=== PATIENT | female | born 1965 | race Caucasian/White ===

== ENCOUNTER 2018-02-11 22:51 | Observation (INO) ==
[2018-02-11 23:59] LABS: Basophils # 0.1 K/mcL (0.0-0.2); Basophils % 0.3 %; Eosinophils # 0.1 K/mcL (0.0-0.6); Eosinophils % 0.5 %; Hematocrit 47.5 % (35.3-44.9); Immature Granulocytes % 0.3 % (0-4); Lymphocytes # 3.1 K/mcL (0.6-4.6); Lymphocytes % 20.1 %; Mean Corpuscular HGB Conc 33.7 g/dL (31.6-35.5); Mean Corpuscular Hemoglobin 29.5 pg (28.0-33.3); Mean Corpuscular Volume 87.5 fL (83.0-100.0); Mean Platelet Volume 9.4 fL (9.4-12.4); Monocytes # 1.3 K/mcL (0.0-1.3); Monocytes % 8.6 %; Neutrophils # 10.8 K/mcL (1.6-8.9); Platelet Count 314 K/mcL (140-400); Red Blood Count 5.43 M/mcL (3.82-4.97); Red Cell Distribution Width 12.8 % (11.5-14.5); Segmented Neutrophils % 70.2 %
[2018-02-12 00:04] LABS: Prothrombin Time 11.3 Seconds (9.4-12.1)
[2018-02-12 00:16] LABS: Bilirubin,Urine Negative (Negative); Blood,Urine Negative (Negative); Clarity,Urine Clear (Clear); Color,Urine Yellow (Yellow); Glucose,Urine (UA) Normal (Normal); Ketones,Urine Negative (Negative); Leukocyte Esterase,Urine Trace (Negative); Nitrite,Urine Negative (Negative); Protein,Urine Negative (Neg-Trace); Specific Gravity,Urine 1.016 (1.010-1.025); Urobilinogen,Urine Normal (Normal)
--- NOTE | 2018-02-12 00:18 | Emergency Department Note ---
Disposition Clinical Impression: Near syncope Disposition: Admitted As Inpatient Condition: Good Referrals: NONE,PCP [Primary Care Provider] - Dana Bolton [Family Provider] - Forms: ED Satisfaction Letter Dizziness HPI - General Chief Complaint: ED Dizziness Stated Complaint: "Dizzy/Near Syncope" Time Seen by Provider: 02/11/18 23:27 Source: patient, family Mode of arrival: private vehicle Limitations: no limitations Nursing Notes Reviewed: Yes Vital Signs Reviewed: Yes - History of Present Illness Pt Subjective Complaint: lightheadedness, near syncope Onset (ago): hour(s) Timing: sudden onset, intermittent, waxing/waning, now resolved Description: lightheadedness, off-balance, near-syncope History of similar episodes: No History of trauma: No Severity: moderate, now resolved Improves with: nothing Worsens with: nothing Associated symptoms: Reports: other (entire head felt numb, felt hot, legs felt weak, called daughter and speech seemed to be "thick". ). Denies: ataxia, chest pain, confusion, diaphoresis, fever, chills, malaise, rash, shortness of breath, syncope, weakness, vision changes, nausea, vomiting, palpitations - Related Data Allergies Allergy/AdvReac Type Severity Reaction Status Date / Time No Known Allergies Allergy Verified 02/11/18 22:59 All systems ED: reviewed and negative except as stated. Review of Systems: As Per HPI Constitutional: Reports: weakness (legs felt weak when walking from house to outside). Denies: fever, chills, night sweats Eyes: Denies: eye pain, eye discharge, vision change ENT ED: Denies: ear pain, throat pain, congestion, dysphagia Cardiovascular: Reports: as per HPI, chest pain (yesterday - "brief episodes of stinging pain"). Denies: palpitations, dyspnea on exertion, orthopnea, edema, syncope (near syncope - felt weak and light headed - like she was going to pass out - while walking) Respiratory: Denies: cough, dyspnea, wheezes, hemoptysis, stridor, sputum production Gastrointestinal: Denies: abdominal pain, nausea, vomiting, diarrhea Genitourinary: Denies: dysuria, frequency, hematuria Musculoskeletal: Reports: other (left leg has been "bigger than the right" for several months). Denies: back pain, neck pain, joint swelling, arthralgia, myalgia Integumentary: Denies: rash, lesions Neurological: Reports: numbness. Denies: headache, confusion, vertigo Psychiatric: Reports: anxiety ("A little bit tonight, but not usually.") Endocrine: Denies: fatigue Hematological/Lymphatic: Denies: easy bleeding, easy bruising Past Medical History - Past Medical History Attestation: Yes The following information was validated with the patient. Source: patient Medical history: Reports: no medical history Surgical history: Reports: non-contributory Psychiatric history: Reports: no psych history - Social History Smoking Status: Current every day smoker Smokeless Tobacco Status: No Alcohol use: Reports: none Drug use: Reports: none Physical Exam - General Limitations: no limitations General appearance: alert, in no apparent distress - Head Head exam: atraumatic, normocephalic, normal inspection - Eye Eye exam: Present: normal appearance, PERRL, EOMI. Absent: scleral icterus, conjunctival injection, nystagmus, miosis, mydriasis, periorbital swelling, periorbital tenderness - ENT ENT exam: normal exam, normal oropharynx, mucous membranes moist - Neck Neck exam: Present: normal inspection, full ROM, trachea midline. Absent: tenderness, meningismus, lymphadenopathy, thyromegaly - Expanded Neck Exam Neck exam focused ED: Absent: JVD, carotid bruit - Chest Chest inspection: Present: normal inspection - Respiratory Respiratory exam: Present: normal lung sounds bilaterally. Absent: respiratory distress, wheezes - Cardiovascular Cardiovascular exam: Present: regular rate, normal rhythm, normal heart sounds - Extremities Exam Extremities exam: Present: full ROM, normal capillary refill, other (left lower leg notably larger than the right). Absent: tenderness, pedal edema, joint swelling, calf tenderness - Expanded Lower Extremity Exam Gait: observed and normal - Back Exam Back exam: Present: normal inspection. Absent: tenderness - Neurological Exam Neurological exam: Present: alert, oriented X3, CN II-XII intact, normal gait, reflexes normal. Absent: motor sensory deficit - Expanded Neurological Exam Patient oriented to: Present: person, place, time Speech: Present: fluid speech Cranial nerves: EOM function (II, III, IV, ): Normal, facial sensation (V): Normal, facial palsy (VII): Normal, gag reflex (IX): Normal, spinal accessory function (XI): Normal, tongue deviation (XII): Normal Cerebellar function: finger to nose: Normal, heel to shcwab: Normal Cerebellar function: normal gait, Romberg normal Motor strength - LUE: 5/5 Motor strength - RUE: 5/5 Motor strength - LLE: 5/5 Motor strength - RLE: 5/5 Upper motor neuron exam: tio neglect: Absent bilaterally, pronator drift: Absent bilaterally, sensory extinction: Absent bilaterally Sensory exam upper extremity: light touch: Normal Sensory exam lower extremity: light touch: Normal Coma Scale Eye Opening: Spontaneous Coma Scale Motor Response: Obeys Commands Coma Scale Verbal Response: Oriented Coma Scale Total: 15 - Psychiatric Psychiatric exam: Present: normal affect, normal mood - Skin Skin exam: Present: warm, dry, intact, normal color Course Course Narrative: Patient presents for eval of paraesthesias., light headedness and near syncope. She also had transient speech change. She had episodes of chest pain yesterday. She has no known past medical hx, but has not been to a doctor in a decade and has a long hx of heavy smoking. She is tachycardic and had a low O2 sat upon arrival, and has an enlarged left leg. Symptoms are somewhat vague, but concerning for possible TIA, PE, CAD or possible infectious process. Will check labs, scan her head, review EKG and re-assess. PAtient ambulated to and from restroom without complications or difficulty. She has had no additional episodes of numbness, weakness or chest pain since arrival. Case was discussed with Dr. Yost. He has interviewed and examined the patient, reviewed the EKG and CT results, and agrees with the assessment and plan to admit. CT head normal per Radiologist. Troponin is normal, Dimer normal, urine normal, CXR normal. CBC shows elevated WBC, RBC and H&H. Platelet count is normal. Patient is tachy and has a leukocytosis, but no complaints of pain, no fever, no rash, no urinary symptoms , no bowel symptoms. Do not suspect infectious process. Hospitalist contacted for admission. He came to the ED to see the patient. He has accepted the patient. Vital Signs Temperature 98.2 F 02/11/18 22:59 Pulse Rate 123 02/11/18 22:59 Respiratory Rate 20 02/11/18 22:59 Blood Pressure 178/83 02/11/18 22:59 O2 Sat by Pulse Oximetry 94 02/11/18 22:59 Temperature 98.2 F 02/11/18 22:59 Pulse Rate 92 02/12/18 02:13 Respiratory Rate 18 02/12/18 02:13 Blood Pressure 122/86 02/12/18 02:13 O2 Sat by Pulse Oximetry 92 02/12/18 02:13 Oxygen Delivery Oxygen Delivery Room Air Dizziness - Medical Records Medical records reviewed: Yes I reviewed the patient's medical records. - Lab Data Lab results reviewed: Yes I reviewed the patient's lab results. Lab results narrative: Laboratory Last Values WBC 15.3 K/mcL (4.3-11.1) H 02/11/18 23:51 RBC 5.43 M/mcL (3.82-4.97) H 02/11/18 23:51 Hgb 16.0 g/dL (11.5-15.4) H 02/11/18 23:51 Hct 47.5 % (35.3-44.9) H 02/11/18 23:51 MCV 87.5 fL (83.0-100.0) 02/11/18 23:51 MCH 29.5 pg (28.0-33.3) 02/11/18 23:51 MCHC 33.7 g/dL (31.6-35.5) 02/11/18 23:51 RDW 12.8 % (11.5-14.5) 02/11/18 23:51 Plt Count 314 K/mcL (140-400) 02/11/18 23:51 MPV 9.4 fL (9.4-12.4) 02/11/18 23:51 Immature Gran % 0.3 % (0-4) 02/11/18 23:51 Seg Neutrophils % 70.2 % 02/11/18 23:51 Lymphocytes % 20.1 % 02/11/18 23:51 Monocytes % 8.6 % 02/11/18 23:51 Eosinophils % 0.5 % 02/11/18 23:51 Basophils % 0.3 % 02/11/18 23:51 Neutrophils # 10.8 K/mcL (1.6-8.9) H 02/11/18 23:51 Lymphocytes # 3.1 K/mcL (0.6-4.6) 02/11/18 23:51 Monocytes # 1.3 K/mcL (0.0-1.3) 02/11/18 23:51 Eosinophils # 0.1 K/mcL (0.0-0.6) 02/11/18 23:51 Basophils # 0.1 K/mcL (0.0-0.2) 02/11/18 23:51 PT 11.3 Seconds (9.4-12.1) 02/11/18 23:51 INR 1.0 02/11/18 23:51 D-Dimer 347 ng/mLFEU (0-500) 02/11/18 23:51 Sodium 134 mEq/L (136-145) L 02/11/18 23:51 Potassium 4.3 mEq/L (3.5-5.1) 02/11/18 23:51 Chloride 102 mEq/L (98-107) 02/11/18 23:51 Carbon Dioxide 25 mEq/L (23-29) 02/11/18 23:51 BUN 10 mg/dL (6-20) 02/11/18 23:51 Creatinine 0.42 mg/dL (0.60-1.20) L 02/11/18 23:51 Est GFR ( Amer) > 60 (> 60) 02/11/18 23:51 Est GFR (Non-Af Amer) > 60 (> 60) 02/11/18 23:51 BUN/Creatinine Ratio 24 (6-26) 02/11/18 23:51 Glucose 120 mg/dL (70-105) H 02/11/18 23:51 Calculated Osmolality 278 (280-300) L 02/11/18 23:51 Calcium 9.8 mg/dL (8.6-10.3) 02/11/18 23:51 Total Bilirubin 0.3 mg/dL (0.3-1.0) 02/11/18 23:51 AST 15 Units/L (13-39) 02/11/18 23:51 ALT 9 Units/L (7-52) 02/11/18 23:51 Alkaline Phosphatase 92 Units/L (34-104) 02/11/18 23:51 Troponin I < 0.03 ng/mL (< 0.04) 02/11/18 23:51 Serum Total Protein 7.6 g/dL (6.4-8.9) 02/11/18 23:51 Albumin 4.4 g/dL (3.5-5.7) 02/11/18 23:51 Globulin 3.2 g/dL (2.4-3.5) 02/11/18 23:51 Albumin/Globulin Ratio 1.4 (1.1-2.2) 02/11/18 23:51 Urine Color Yellow (Yellow) 02/11/18 23:59 Urine Clarity Clear (Clear) 02/11/18 23:59 Urine pH 6.0 pH Units (5.0-8.0) 02/11/18 23:59 Ur Specific [place] 1.016 (1.010-1.025) 02/11/18 23:59 Urine Protein Negative mg/dL (Neg-Trace) 02/11/18 23:59 Urine Glucose (UA) Normal mg/dL (Normal) 02/11/18 23:59 Urine Ketones Negative mg/dL (Negative) 02/11/18 23:59 Urine Blood Negative (Negative) 02/11/18 23:59 Urine Nitrite Negative (Negative) 02/11/18 23:59 Urine Bilirubin Negative (Negative) 02/11/18 23:59 Urine Urobilinogen Normal mg/dL (Normal) 02/11/18 23:59 Ur Leukocyte Esterase Trace (Negative) H 02/11/18 23:59 Urine Microscopic RBC 0-3 per hpf (0-3) 02/11/18 23:59 Urine Microscopic WBC 0-3 per hpf (0-3) 02/11/18 23:59 Ur Squamous Epith Cells Few per lpf (None-Few) 02/11/18 23:59 Urine Bacteria None Seen per hpf (None-Few) 02/11/18 23:59 Hyaline Casts None Seen per lpf (None-Few) 02/11/18 23:59 Ur Culture Indicated? YES (NO) A 02/11/18 23:59 Result diagrams: 02/11/18 23:51 02/11/18 23:51 Lab Results 02/11/18 02/11/18 02/11/18 Range/Units 23:51 23:51 23:51 WBC 15.3 H (4.3-11.1) K/mcL RBC 5.43 H (3.82-4.97) M/mcL Hgb 16.0 H (11.5-15.4) g/dL Hct 47.5 H (35.3-44.9) % MCV 87.5 (83.0-100.0) fL MCH 29.5 (28.0-33.3) pg MCHC 33.7 (31.6-35.5) g/dL RDW 12.8 (11.5-14.5) % Plt Count 314 (140-400) K/mcL MPV 9.4 (9.4-12.4) fL Immature Gran % 0.3 (0-4) % Seg Neutrophils % 70.2 % Lymphocytes % 20.1 % Monocytes % 8.6 % Eosinophils % 0.5 % Basophils % 0.3 % Neutrophils # 10.8 H (1.6-8.9) K/mcL Lymphocytes # 3.1 (0.6-4.6) K/mcL Monocytes # 1.3 (0.0-1.3) K/mcL Eosinophils # 0.1 (0.0-0.6) K/mcL Basophils # 0.1 (0.0-0.2) K/mcL PT 11.3 (9.4-12.1) Seconds INR 1.0 D-Dimer 347 (0-500) ng/mLFEU Sodium 134 L (136-145) mEq/L Potassium 4.3 (3.5-5.1) mEq/L Chloride 102 (98-107) mEq/L Carbon Dioxide 25 (23-29) mEq/L BUN 10 (6-20) mg/dL Creatinine 0.42 L (0.60-1.20) mg/dL Est GFR ( Amer) > 60 (> 60) Est GFR (Non-Af Amer) > 60 (> 60) BUN/Creatinine Ratio 24 (6-26) Glucose 120 H (70-105) mg/dL Calculated Osmolality 278 L (280-300) Calcium 9.8 (8.6-10.3) mg/dL Total Bilirubin 0.3 (0.3-1.0) mg/dL AST 15 (13-39) Units/L ALT 9 (7-52) Units/L Alkaline Phosphatase 92 (34-104) Units/L Troponin I < 0.03 (< 0.04) ng/mL Serum Total Protein 7.6 (6.4-8.9) g/dL Albumin 4.4 (3.5-5.7) g/dL Globulin 3.2 (2.4-3.5) g/dL Albumin/Globulin Ratio 1.4 (1.1-2.2) Urine Color (Yellow) Urine Clarity (Clear) Urine pH (5.0-8.0) pH Units Ur Specific [place] (1.010-1.025) Urine Protein (Neg-Trace) mg/dL Urine Glucose (UA) (Normal) mg/dL Urine Ketones (Negative) mg/dL Urine Blood (Negative) Urine Nitrite (Negative) Urine Bilirubin (Negative) Urine Urobilinogen (Normal) mg/dL Ur Leukocyte Esterase (Negative) Urine Microscopic RBC (0-3) per hpf Urine Microscopic WBC (0-3) per hpf Ur Squamous Epith Cells (None-Few) per lpf Urine Bacteria (None-Few) per hpf Hyaline Casts (None-Few) per lpf Ur Culture Indicated? (NO) 02/11/18 Range/Units 23:59 WBC (4.3-11.1) K/mcL RBC (3.82-4.97) M/mcL Hgb (11.5-15.4) g/dL Hct (35.3-44.9) % MCV (83.0-100.0) fL MCH (28.0-33.3) pg MCHC (31.6-35.5) g/dL RDW (11.5-14.5) % Plt Count (140-400) K/mcL MPV (9.4-12.4) fL Immature Gran % (0-4) % Seg Neutrophils % % Lymphocytes % % Monocytes % % Eosinophils % % Basophils % % Neutrophils # (1.6-8.9) K/mcL Lymphocytes # (0.6-4.6) K/mcL Monocytes # (0.0-1.3) K/mcL Eosinophils # (0.0-0.6) K/mcL Basophils # (0.0-0.2) K/mcL PT (9.4-12.1) Seconds INR D-Dimer (0-500) ng/mLFEU Sodium (136-145) mEq/L Potassium (3.5-5.1) mEq/L Chloride (98-107) mEq/L Carbon Dioxide (23-29) mEq/L BUN (6-20) mg/dL Creatinine (0.60-1.20) mg/dL Est GFR ( Amer) (> 60) Est GFR (Non-Af Amer) (> 60) BUN/Creatinine Ratio (6-26) Glucose (70-105) mg/dL Calculated Osmolality (280-300) Calcium (8.6-10.3) mg/dL Total Bilirubin (0.3-1.0) mg/dL AST (13-39) Units/L ALT (7-52) Units/L Alkaline Phosphatase (34-104) Units/L Troponin I (< 0.04) ng/mL Serum Total Protein (6.4-8.9) g/dL Albumin (3.5-5.7) g/dL Globulin (2.4-3.5) g/dL Albumin/Globulin Ratio (1.1-2.2) Urine Color Yellow (Yellow) Urine Clarity Clear (Clear) Urine pH 6.0 (5.0-8.0) pH Units Ur Specific [place] 1.016 (1.010-1.025) Urine Protein Negative (Neg-Trace) mg/dL Urine Glucose (UA) Normal (Normal) mg/dL Urine Ketones Negative (Negative) mg/dL Urine Blood Negative (Negative) Urine Nitrite Negative (Negative) Urine Bilirubin Negative (Negative) Urine Urobilinogen Normal (Normal) mg/dL Ur Leukocyte Esterase Trace H (Negative) Urine Microscopic RBC 0-3 (0-3) per hpf Urine Microscopic WBC 0-3 (0-3) per hpf Ur Squamous Epith Cells Few (None-Few) per lpf Urine Bacteria None Seen (None-Few) per hpf Hyaline Casts None Seen (None-Few) per lpf Ur Culture Indicated? YES A (NO) - Radiology Data Radiology results reviewed: Yes I reviewed the patient's radiology results. Chest X-Ray 02/12/18 23:40 IMPRESSION: No significant findings in the chest. D/ / Cristhian Hawk MD / Cristhian Hawk MD Interpreting Provider: Cristhian Hawk MD Head CT 02/12/18 23:40 IMPRESSION: No acute intracranial abnormality. D/ / Nigel Joy MD / Nigel Joy MD Interpreting Provider: Nigel Joy MD
[2018-02-12 00:23] LABS: Bacteria,Urine None Seen per hpf (None-Few); Hyaline Casts,Urine None Seen per lpf (None-Few); RBC,Urine 0-3 per hpf (0-3); Squamous Epithelial Cell,Urine Few per lpf (None-Few); WBC,Urine 0-3 per hpf (0-3)
[2018-02-12 00:23] LABS: Troponin I < 0.03 ng/mL (< 0.04)
[2018-02-12 00:24] LABS: Alanine Aminotransferase 9 Units/L (7-52); Albumin 4.4 g/dL (3.5-5.7); Albumin/Globulin Ratio 1.4 (1.1-2.2); Alkaline Phosphatase 92 Units/L (34-104); Aspartate Amino Transferase 15 Units/L (13-39); BUN/Creatinine Ratio 24 (6-26); Bilirubin,Total 0.3 mg/dL (0.3-1.0); Blood Urea Nitrogen 10 mg/dL (6-20); Calcium 9.8 mg/dL (8.6-10.3); Carbon Dioxide 25 mEq/L (23-29); Chloride 102 mEq/L (98-107); Globulin 3.2 g/dL (2.4-3.5); Glucose 120 mg/dL (70-105); Osmolality,Calculated 278 (280-300); Potassium 4.3 mEq/L (3.5-5.1); Sodium 134 mEq/L (136-145); Total Protein 7.6 g/dL (6.4-8.9); eGFR For Non-African Americans > 60 (> 60)
[2018-02-12] MEDS: 0.9 % Sodium Chloride 1,000 ML IVC SCH ×2 (00:45→06:42)
--- NOTE | 2018-02-12 01:56 | Emergency Department Note ---
Disposition Clinical Impression: Near syncope Disposition: Admitted As Inpatient Condition: Good General Adult HPI - General Chief complaint: ED Dizziness Stated complaint: "Dizzy/Near Syncope" Time Seen by Provider: 02/11/18 23:27 Source: patient, family Limitations: no limitations Nursing Notes Reviewed: Yes Vital Signs Reviewed: Yes - History of Present Illness Pain Scale: 0 - Related Data Allergies Allergy/AdvReac Type Severity Reaction Status Date / Time No Known Allergies Allergy Verified 02/11/18 22:59 Past Medical History - Past Medical History Medical history: Reports: no medical history Psychiatric history: Reports: no psych history - Social History Smoking Status: Current every day smoker Smokeless Tobacco Status: No Alcohol use: Reports: none Drug use: Reports: none Physical Exam - General Limitations: no limitations General appearance: alert, in no apparent distress Course Vital Signs Temperature 98.2 F 02/11/18 22:59 Pulse Rate 123 02/11/18 22:59 Respiratory Rate 20 02/11/18 22:59 Blood Pressure 178/83 02/11/18 22:59 O2 Sat by Pulse Oximetry 94 02/11/18 22:59 Temperature 98.2 F 02/11/18 22:59 Pulse Rate 92 02/12/18 02:13 Respiratory Rate 18 02/12/18 02:13 Blood Pressure 122/86 02/12/18 02:13 O2 Sat by Pulse Oximetry 92 02/12/18 02:13 Oxygen Delivery Oxygen Delivery Room Air Medical Decision Making - Lab Data Result diagrams: 02/11/18 23:51 02/11/18 23:51 Lab Results 02/11/18 02/11/18 02/11/18 Range/Units 23:51 23:51 23:51 WBC 15.3 H (4.3-11.1) K/mcL RBC 5.43 H (3.82-4.97) M/mcL Hgb 16.0 H (11.5-15.4) g/dL Hct 47.5 H (35.3-44.9) % MCV 87.5 (83.0-100.0) fL MCH 29.5 (28.0-33.3) pg MCHC 33.7 (31.6-35.5) g/dL RDW 12.8 (11.5-14.5) % Plt Count 314 (140-400) K/mcL MPV 9.4 (9.4-12.4) fL Immature Gran % 0.3 (0-4) % Seg Neutrophils % 70.2 % Lymphocytes % 20.1 % Monocytes % 8.6 % Eosinophils % 0.5 % Basophils % 0.3 % Neutrophils # 10.8 H (1.6-8.9) K/mcL Lymphocytes # 3.1 (0.6-4.6) K/mcL Monocytes # 1.3 (0.0-1.3) K/mcL Eosinophils # 0.1 (0.0-0.6) K/mcL Basophils # 0.1 (0.0-0.2) K/mcL PT 11.3 (9.4-12.1) Seconds INR 1.0 D-Dimer 347 (0-500) ng/mLFEU Sodium 134 L (136-145) mEq/L Potassium 4.3 (3.5-5.1) mEq/L Chloride 102 (98-107) mEq/L Carbon Dioxide 25 (23-29) mEq/L BUN 10 (6-20) mg/dL Creatinine 0.42 L (0.60-1.20) mg/dL Est GFR ( Amer) > 60 (> 60) Est GFR (Non-Af Amer) > 60 (> 60) BUN/Creatinine Ratio 24 (6-26) Glucose 120 H (70-105) mg/dL Calculated Osmolality 278 L (280-300) Calcium 9.8 (8.6-10.3) mg/dL Total Bilirubin 0.3 (0.3-1.0) mg/dL AST 15 (13-39) Units/L ALT 9 (7-52) Units/L Alkaline Phosphatase 92 (34-104) Units/L Troponin I < 0.03 (< 0.04) ng/mL Serum Total Protein 7.6 (6.4-8.9) g/dL Albumin 4.4 (3.5-5.7) g/dL Globulin 3.2 (2.4-3.5) g/dL Albumin/Globulin Ratio 1.4 (1.1-2.2) Urine Color (Yellow) Urine Clarity (Clear) Urine pH (5.0-8.0) pH Units Ur Specific [place] (1.010-1.025) Urine Protein (Neg-Trace) mg/dL Urine Glucose (UA) (Normal) mg/dL Urine Ketones (Negative) mg/dL Urine Blood (Negative) Urine Nitrite (Negative) Urine Bilirubin (Negative) Urine Urobilinogen (Normal) mg/dL Ur Leukocyte Esterase (Negative) Urine Microscopic RBC (0-3) per hpf Urine Microscopic WBC (0-3) per hpf Ur Squamous Epith Cells (None-Few) per lpf Urine Bacteria (None-Few) per hpf Hyaline Casts (None-Few) per lpf Ur Culture Indicated? (NO) 02/11/18 Range/Units 23:59 WBC (4.3-11.1) K/mcL RBC (3.82-4.97) M/mcL Hgb (11.5-15.4) g/dL Hct (35.3-44.9) % MCV (83.0-100.0) fL MCH (28.0-33.3) pg MCHC (31.6-35.5) g/dL RDW (11.5-14.5) % Plt Count (140-400) K/mcL MPV (9.4-12.4) fL Immature Gran % (0-4) % Seg Neutrophils % % Lymphocytes % % Monocytes % % Eosinophils % % Basophils % % Neutrophils # (1.6-8.9) K/mcL Lymphocytes # (0.6-4.6) K/mcL Monocytes # (0.0-1.3) K/mcL Eosinophils # (0.0-0.6) K/mcL Basophils # (0.0-0.2) K/mcL PT (9.4-12.1) Seconds INR D-Dimer (0-500) ng/mLFEU Sodium (136-145) mEq/L Potassium (3.5-5.1) mEq/L Chloride (98-107) mEq/L Carbon Dioxide (23-29) mEq/L BUN (6-20) mg/dL Creatinine (0.60-1.20) mg/dL Est GFR ( Amer) (> 60) Est GFR (Non-Af Amer) (> 60) BUN/Creatinine Ratio (6-26) Glucose (70-105) mg/dL Calculated Osmolality (280-300) Calcium (8.6-10.3) mg/dL Total Bilirubin (0.3-1.0) mg/dL AST (13-39) Units/L ALT (7-52) Units/L Alkaline Phosphatase (34-104) Units/L Troponin I (< 0.04) ng/mL Serum Total Protein (6.4-8.9) g/dL Albumin (3.5-5.7) g/dL Globulin (2.4-3.5) g/dL Albumin/Globulin Ratio (1.1-2.2) Urine Color Yellow (Yellow) Urine Clarity Clear (Clear) Urine pH 6.0 (5.0-8.0) pH Units Ur Specific [place] 1.016 (1.010-1.025) Urine Protein Negative (Neg-Trace) mg/dL Urine Glucose (UA) Normal (Normal) mg/dL Urine Ketones Negative (Negative) mg/dL Urine Blood Negative (Negative) Urine Nitrite Negative (Negative) Urine Bilirubin Negative (Negative) Urine Urobilinogen Normal (Normal) mg/dL Ur Leukocyte Esterase Trace H (Negative) Urine Microscopic RBC 0-3 (0-3) per hpf Urine Microscopic WBC 0-3 (0-3) per hpf Ur Squamous Epith Cells Few (None-Few) per lpf Urine Bacteria None Seen (None-Few) per hpf Hyaline Casts None Seen (None-Few) per lpf Ur Culture Indicated? YES A (NO) Attestation Statement - Attestation Attestation: I examined this patient and my medical decision making was reviewed with the TRAM. I agree with the documented findings, disposition and treatment plan as described except to the extent set forth below. We independently had face-to- face contact with the patient. TRAM Kayla Rao Patient has no significant past medical history. Does not follow with primary care physician. Takes no medications at home. Presents today for evaluation of dizziness and near syncope. Patient states tingling feeling across her head bilaterally. Patient has hot and got up to get some air. Patient then felt weak in the legs and is she might pass out. Patient has had several episodes of this since her initial episode. No previous episodes. Patient does not actively have chest pain. Describes chest pain yesterday as several episodes of staining across the front of her chest. Patient does have her left leg swollen greater than her right. Lungs are clear to auscultation bilaterally. Regular rhythm, tachycardia. Patient will undergo workup for etiologies of near -syncope, dyspnea, TIA. Workup is unremarkable but given the fact that she has had multiple episodes and it has not been otherwise explained. Patient be brought in for further evaluation. Please see TRAM note for further details and disposition.
--- NOTE | 2018-02-12 02:53 | Internal Med History&Physical ---
<Angel Meade - Last Filed: 02/12/18 03:11> Date of Encounter: 02/12/18 Time of Encounter: 02:15 Internal Medicine - H&P: HPI Chief complaint: Dizziness Admitted From: Emergency Dept Plans for Post Hospital Care: Home History of present illness: Ms. Hirsch is a 52 year old female with remote history of hypothyroidism and current history of tobacco abuse who presents the ED for several hour history of dizziness. The patient says that she was sitting in her recliner watching TV at home when she suddenly felt dizzy and lightheaded. She says that her vision suddenly appeared to have white fuzziness, and she felt that she may pass out. At that time she noticed that she began to sweat profusely, became shaky, and she became highly anxious. She felt that her heart was racing at that time as well. She said that she stood up, and felt that she was very short of breath. She called out for her daughter who was apparently upstairs, and walked outside which she said helped when she felt the cold air on her lungs. In addition the symptoms, she said that she felt that her tongue, thick in her mouth felt dry. She said that overall this was feeling almost as if her head had gone numb. The only thing that seemed to help this with standing, whereas sitting seemed to make the situation worse. She has never had any experience similar to this, although she does remember having panic attacks approximately 20 years ago and does not believe that it was similar to that. Overall, this episode lasted approximately 20 minutes and then resolve spontaneously. She said that it did occur approximately [address] to the hospital, however they were not as intense, and it did not last as long. She feels that shaking her head does seem to elicit some of these symptoms again, but certainly not as intensely as previously. She denies chest pains associated with this although she did have some stinging chest pain in her chest yesterday without the rest of the symptoms which lasted for approximately a secondary to each and resolved immediately. The patient's past medical history is vague in nature. She states that she did at one time have hypothyroidism for which she took levothyroxine, however she stopped because it was making her feel worse. Otherwise she has not been to a doctor in recent years and is not aware of any medical conditions that she may have. She does say that she has had heartburn in the past couple of weeks for which she takes Tums and it is generally very effective. She denies any recent illness or recent sick contacts. She has not been traveling recently. She does have seasonal allergies for which she took Krystal over the summer and she stopped taking it recently without noticing any significant changes in symptoms. The patient does not work. She lives at home with her . She does smoke 1 pack per day. She denies alcohol use or drug use. She drinks about 1 pot of coffee per day. The patient denies surgical history. Family history is significant for a mother and a brother with hypertension. Past Med Surg Social Fam HX - Past Medical History Medical history: no medical history Psychiatric history: no psych history - Social History Smoking Status: Current every day smoker Smokeless Tobacco Status: No Alcohol use: none Drug use: none Internal Medicine - H&P: Meds 3 Allergy/AdvReac Type Severity Reaction Status Date / Time No Known Allergies Allergy Verified 02/11/18 22:59 All Systems PM: A 10-system review of systems was performed and is negative for pertinent findings except as documented above in the HPI. Review of systems: Constitutional: Denies fevers, weight loss, generalized fatigue. Admits to some chills associated with this incident Head/Neck: Denies COOK, neck stiffness. Admits to dizziness and lightheadedness EENT: Denies vision changes/blurriness, rhinorrhea, congestion, sore throat CVS: Denies chest pain, palpitations, ADAMS, orthopnea, edema, PND. Admits to diaphoresis Pulm: Denies cough, sputum, hemoptysis, wheezing. Admits to some shortness of breath associated with this incident GI: Denies abdominal pain, nausea, vomiting, diarrhea, constipation, melena, hematemasis : Denies dysuria, increased frequency, urgency, hematuria Heme: Denies ease of bleeding or bruising MSK: Denies joint pain, limited ROM Skin: Denies rashes, ulcers, color changes Neuro: Denies COOK, paresthesias, focal deficits, ataxia - Constitutional Vitals: Temp Pulse Resp BP Pulse Ox 98.2 F 92 18 122/86 92 02/11/18 22:59 02/12/18 02:13 02/12/18 02:13 02/12/18 02:13 02/12/18 02:13 Exam: Gen: Vitals noted. No acute distress. HEENT: Normocephalic, atraumatic Neck: Supple. No adenopathy. Fullness noted b/l at level of the patient's thyroid without discreet nodule noted Cardiac: RRR, no murmur, +S1/S2 Pulmonary: CTA bilaterally, no wheezes, rales or rhonchi, equal chest expansion Abdomen: soft, nontender, no guarding Back: Nontender throughout. MSK: ROM intact, no joint swelling noted Extremities: L lower extremity minimally more edematous than right, nontender calf, no cyanosis or clubbing Neuro: moves all extremities, no focal deficits. A&Ox3 Psych: Appropriate mood and behavior Internal Med - H&P Results - Labs CBC & Chem 7: 02/11/18 23:51 02/11/18 23:51 - Impressions ITS Impressions Chest X-Ray 02/12/18 23:40 IMPRESSION: No significant findings in the chest. D/ / Cristhian Hawk MD / Cristhian Hawk MD Interpreting Provider: Cristhian Hawk MD Head CT 02/12/18 23:40 IMPRESSION: No acute intracranial abnormality. D/ / Nigel Joy MD / Nigel Joy MD Interpreting Provider: Nigel Joy MD - Assessment and plan (1) Near syncope Current Visit: Yes Status: Acute Assessment and plan: Patient presents with near syncopal episode at rest x3 The story is suspicious for anxiety/panic attack, however the patient has not had this problem in the past and it was brought on spontaneously Additionally, the patient had 3 episodes in a short period of time. This causes more concern for underlying pathology EKG and troponins negative for ischemia + arrhythmia at this time Head CT is negative for intracranial abnormality CXR unremarkable We will repeat labs in the am Trend troponins Cardiac monitoring B/l carotid duplex ultrasound Echocardiogram (2) Tachycardia Current Visit: Yes Status: Acute Assessment and plan: Patient has remained in sinus tachycardia since arriving HR has been as high as 130, despite resting. Orthostatics negative PE was considered, D-Dimer is negative Patient does have elevated WBC, however does not have evidence of infection otherwise. Appears euvolemic We will give maintenance fluids, encourage PO intake radiation monitor Check TSH (3) DVT prophylaxis Current Visit: Yes Status: Acute Assessment and plan: SQ Heparin - Time Spent With Patient Total time spent is greater than 50% in coordination of care (as documented) at patient's floor/unit and/or counseling patient: <Michael Rico - Last Filed: 02/12/18 05:32> Date of Encounter: 02/12/18 Internal Medicine - H&P: HPI History of present illness: Ms. Hirsch is a 52 year old female Past Med Surg Social Fam HX - Family History Mother Living Status: Still Living Father Living Status: Age at : 81 Cause of : PNA All Systems PM: A 10-system review of systems was performed and is negative for pertinent findings except as documented above in the HPI. - Constitutional Vitals: Temp Pulse Resp BP Pulse Ox 97.5 F L 92 18 116/78 92 02/12/18 04:03 02/12/18 04:03 02/12/18 04:03 02/12/18 04:03 02/12/18 04:03 Internal Med - H&P Results - Labs CBC & Chem 7: 02/12/18 04:37 02/11/18 23:51 Labs: Short CBC 02/12/18 Range/Units 04:37 WBC 11.9 H (4.3-11.1) K/mcL Hgb 14.7 (11.5-15.4) g/dL Hct 43.3 (35.3-44.9) % Plt Count 273 (140-400) K/mcL Neutrophils # 7.7 (1.6-8.9) K/mcL Cardiac Enzymes 02/12/18 Range/Units 04:37 Troponin I < 0.03 (< 0.04) ng/mL - Impressions ITS Impressions Chest X-Ray 02/12/18 23:40 IMPRESSION: No significant findings in the chest. D/ / Cristhian Hawk MD / Cristhian Hawk MD Interpreting Provider: Cristhian Hawk MD Head CT 02/12/18 23:40 IMPRESSION: No acute intracranial abnormality. D/ / Nigel Joy MD / Nigel Joy MD Interpreting Provider: Nigel Joy MD - Assessment and plan (1) Near syncope Current Visit: Yes Status: Acute (2) Tachycardia Current Visit: Yes Status: Acute (3) DVT prophylaxis Current Visit: Yes Status: Acute - Time Spent With Patient Total time spent is greater than 50% in coordination of care (as documented) at patient's floor/unit and/or counseling patient: - Attending Attestation Patient seen and examined. Chart reviewed. Case discussed with resident. Agree with assessment and plan. Patient asymptomatic at this time. We will admit patient for observation and workup for presyncope.
[2018-02-12] MEDS ORDERED: 0.9 % Sodium Chloride 500 ML IVC ONE (03:11)
[2018-02-12] MEDS ORDERED: Naloxone 0.4 MG/ML INJ IVP PRN (04:10)
[2018-02-12] MEDS: *HR* Heparin 5,000 UNIT/ML VIAL SQ SCH ×2 (05:02→15:12)
[2018-02-12 05:12] LABS: Basophils % 0.3 %; Eosinophils # 0.1 K/mcL (0.0-0.6); Eosinophils % 0.8 %; Hematocrit 43.3 % (35.3-44.9); Hemoglobin 14.7 g/dL (11.5-15.4); Immature Granulocytes % 0.3 % (0-4); Lymphocytes # 3.3 K/mcL (0.6-4.6); Lymphocytes % 27.9 %; Mean Corpuscular HGB Conc 33.9 g/dL (31.6-35.5); Mean Corpuscular Hemoglobin 29.8 pg (28.0-33.3); Mean Corpuscular Volume 87.7 fL (83.0-100.0); Mean Platelet Volume 9.8 fL (9.4-12.4); Monocytes # 0.8 K/mcL (0.0-1.3); Monocytes % 6.3 %; Neutrophils # 7.7 K/mcL (1.6-8.9); Platelet Count 273 K/mcL (140-400); Red Blood Count 4.94 M/mcL (3.82-4.97); Red Cell Distribution Width 12.8 % (11.5-14.5); Segmented Neutrophils % 64.4 %
[2018-02-12 05:28] LABS: Troponin I < 0.03 ng/mL (< 0.04)
[2018-02-12 05:31] LABS: Blood Urea Nitrogen 8 mg/dL (6-20); Carbon Dioxide 24 mEq/L (23-29); Chloride 106 mEq/L (98-107); Sodium 137 mEq/L (136-145)
[2018-02-12 05:32] LABS: BUN/Creatinine Ratio 24 (6-26); Glucose 103 mg/dL (70-105); Osmolality,Calculated 283 (280-300); eGFR For Non-African Americans > 60 (> 60)
[2018-02-12 05:42] LABS: Thyroid Stimulating Hormone 0.916 mcIU/mL (0.340-5.600)
[2018-02-12 06:47] LABS: Amphetamine Screen,Urine Negative ng/mL (Cutoff=1000); Barbiturate Screen,Urine Negative ng/mL (Cutoff=200)
[2018-02-12 06:48] LABS: Benzodiazepines Screen,Urine Negative ng/mL (Cutoff=300); Cannabinoid Screen,Urine Negative ng/mL (Cutoff = 50); Cocaine Screen,Urine Negative ng/mL (Cutoff= 300); Opiate Screen,Urine Negative ng/mL (Cutoff=300); Phencyclidine Screen,Urine Negative ng/mL (Cutoff=25)
[2018-02-12] MEDS ORDERED: Loratadine 10 MG TABLET PO SCH ×2 (09:15→09:30)
[2018-02-12 11:27] VITALS: BP 131/83
--- NOTE | 2018-02-12 18:09 | Discharge Summary ---
- NOTES TO OUTPATIENT PROVIDER Notes to Outpatient Provider: f/u with PCP as scheduled. Orders not resulted at time of discharge: Pending orders 02/13/18 04:00 BMP [Basic Metabolic Panel] AM 0400 Complete Blood Count [HEME] AM 0400 Date of Encounter: 02/12/18 Time of Encounter: 18:07 - Discharge Diagnosis (1) Near syncope Priority: Primary Status: Acute (2) Tachycardia Priority: Primary Status: Acute (3) DVT prophylaxis Priority: Primary Status: Acute Hospital course: Ms. Hirsch is a 52 year old female with remote history of hypothyroidism and current history of tobacco abuse who presents the ED for several hour history of dizziness. The patient says that she was sitting in her recliner watching TV at home when she suddenly felt dizzy and lightheaded. She says that her vision suddenly appeared to have white fuzziness, and she felt that she may pass out. At that time she noticed that she began to sweat profusely, became shaky, and she became highly anxious. She felt that her heart was racing at that time as well. She said that she stood up, and felt that she was very short of breath. She called out for her daughter who was apparently upstairs, and walked outside which she said helped when she felt the cold air on her lungs. In addition the symptoms, she said that she felt that her tongue, thick in her mouth felt dry. She said that overall this was feeling almost as if her head had gone numb. The only thing that seemed to help this with standing, whereas sitting seemed to make the situation worse. She has never had any experience similar to this, although she does remember having panic attacks approximately 20 years ago and does not believe that it was similar to that. Overall, this episode lasted approximately 20 minutes and then resolve spontaneously. She said that it did occur approximately [address] way to the hospital, however they were not as intense, and it did not last as long. She feels that shaking her head does seem to elicit some of these symptoms again, but certainly not as intensely as previously. She denies chest pains associated with this although she did have some stinging chest pain in her chest yesterday without the rest of the symptoms which lasted for approximately a second to each and resolved immediately. Patient was admitted, her labs revealed mild leukocytosis, normal TSH and the troponin. she underwent echocardiogram which showed normal ejection fraction, normal LV and RV function, and no aortic stenosis. Carotid Doppler showed no obstructive lesions. Patient did not have further syncopal episode since admission. She attributed her syncope to abrupt discontinuation of her allergy medicine. Since she restarted to take that medicine after admission, she stated she never had any problems. Although this could be the explanation for her symptoms, no definite/clear diagnosis can be made at this time. A lengthy discussion with patient about test results and a possible undiagnosed etiology were conducted. Patient verbally understands. Patient will be discharged home and she will continue follow-up with PCP. She was also instructed to seek immediate medical assistance if symptoms reoccur. Discharge discussed with: patient, family Time spent discussing smoking cessation with patient: more than 10 minutes - Time Spent with Patient Total time spent providing and/or coordinating discharge services: Greater than 30 minutes - Discharge Medications Home Medications: Fexofenadine HCl [Allergy Relief] 180 mg PO DAILY 02/12/18 [History] Multivit-Min/FA/Lycopen/Lutein [A Thru Z Select Multivit Tab] 1 tab PO DAILY [History] Naproxen [Naprosyn] 500 mg PO Q12H PRN 02/12/18 [History] [place]-3/Dha/Epa/Fish Oil [Fish Oil 1,000 mg Softgel] 1 cap PO DAILY 02/12/18 [ History] Allergies/Adverse Reactions: 3 Allergy/AdvReac Type Severity Reaction Status Date / Time No Known Allergies Allergy Verified 02/11/18 22:59 Date of admission: 02/12/18 01:48 Primary care physician: PCP NONE Anticipated date of discharge: 02/12/18 - Constitutional Vitals: Temp Pulse Resp BP Pulse Ox 98.1 F 88 18 131/83 91 02/12/18 11:26 02/12/18 11:26 02/12/18 11:26 02/12/18 11:26 02/12/18 11:26 General appearance: Present: cooperative, A&O X 3, answers questions appropriately Exam: PHYSICAL EXAMINATION: GENERAL APPEARANCE: The patient is alert, oriented and in no acute distress. HEENT: Head is normocephalic. The sinuses are nontender. Pupils are equal and reactive. The nares are patent. Oropharynx clear without lesions. NECK: Supple without lymphadenopathy. HEART: Regular rate and rhythm. LUNGS: No crackles or wheezes are heard. ABDOMEN: Soft, nontender, nondistended with good bowel sounds heard. Inguinal area is normal. EXTREMITIES: Without cyanosis, clubbing or edema. NEUROLOGICAL: Gross nonfocal. SKIN: Warm and dry without any rash. - Patient Status Disposition: Home, Self-Care Condition: Good Functional capacity at discharge: independent ambulation Overall status at discharge: patient is progressing back to baseline - Discharge Instructions Follow Up With: NONE,PCP [Primary Care Provider] - Dana Bolton [Family Provider] - Forms: ED Satisfaction Letter - Diet and Activity Activity: increase activity as tolerated Diet: advance to your usual diet
[2018-02-13] MEDS ORDERED: NON-FORMULARY MEDICATION 1 EACH EACH (Fexofenadine Hcl [Allergy Relief] 180 MG) PO SCH (09:00)
[2018-02-13] MEDS ORDERED: Multivit/Ca/Min/Fe/FA 1 TAB TABLET PO SCH (09:00)
[2018-02-13] MEDS ORDERED: (Omega-3/Dha/Epa/Fish Oil [Fish Oil 1,000 Mg Softgel] PO SCH (09:00)
--- NOTE | 2018-02-14 16:16 | Electrocardiograph Report ---
[address] [place], [place] [address] Test Date: 2018-02-11 Pat Name: Sera Hirsch Department: 104 Room: 3B Gender: Vocal Music Instructor: : [id number] Requested By: Andrew Yost Order Number: [id number] Reading MD: Shannen Nunez Measurements Intervals [place] Rate: 118 P: 76 IN: 173 QRS: 86 QRSD: 84 T: 44 QT: 298 QTc: 368 Interpretive Statements SINUS TACHYCARDIA POSSIBLE LEFT ATRIAL ENLARGEMENT ABNORMAL RHYTHM ECG Electronically Signed On 02-14-2018 16:14:55 EDT by Shannen Nunez
== END 2018-02-12 18:37 | disposition home or self-care (01) ==
LOC: EMEROOARM 22:51 → 3BNU 22:51
PROVIDERS: ADMIT Internal Medicine; ATTEND Internal Medicine